=== PATIENT | female | born 1950 | race Caucasian/White ===

== ENCOUNTER 2019-02-18 09:54 | Emergency (ER) | payer OTHER ==
--- NOTE | 2019-02-18 11:09 | EDM.PDOC ---
ED HPI GENERAL MEDICAL PROBLEM - General Chief Complaint: Genitourinary Problem Stated Complaint: POSSIBLE UTI Time Seen by Provider: 02/18/19 10:40 Source of Information: Reports: Patient History Limitations: Reports: No Limitations - History of Present Illness INITIAL COMMENTS - FREE TEXT/NARRATIVE: 68-year-old without significant comorbidities presents with concerns of urinary discomfort. She is visiting the area from [place]. She reports that 2 days ago she began having dysuria and suprapubic tenderness. She has had no fevers. She has no flank pain. No hematuria.She otherwise feels well. Has a history of prior UTIs. 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: , Spontaneous Musculoskeletal History: Reports: Arthritis Endocrine/Metabolic History: Reports: Osteopenia Oncologic (Cancer) History: Reports: Malignant Melanoma Dermatologic History: Reports: Melanoma - Infectious Disease History Infectious Disease History: Reports: Chicken Pox, Measles, Mumps - Past Surgical History HEENT Surgical History: Reports: Adenoidectomy, Tonsillectomy GI Surgical History: Reports: Appendectomy, Cholecystectomy Social & Family History - Tobacco Use Smoking Status *Q: Never Smoker - Caffeine Use Caffeine Use: Reports: Coffee - Recreational Drug Use Recreational Drug Use: No ED ROS GENERAL - Review of Systems Review Of Systems: See Below Constitutional: Reports: No Symptoms HEENT: Reports: No Symptoms Respiratory: Reports: No Symptoms Cardiovascular: Reports: No Symptoms Endocrine: Reports: No Symptoms GI/Abdominal: Reports: No Symptoms : Reports: Dysuria, Frequency. Denies: Discharge, Hematuria Musculoskeletal: Reports: No Symptoms Skin: Reports: No Symptoms Neurological: Reports: No Symptoms Psychiatric: Reports: No Symptoms Hematologic/Lymphatic: Reports: No Symptoms Immunologic: Reports: No Symptoms ED EXAM, RENAL/ - Physical Exam Exam: See Below Exam Limited By: No Limitations General Appearance: Alert, WD/WN Nose: Normal Inspection Throat/Mouth: Normal Inspection Head: Atraumatic, Normocephalic Neck: Normal Inspection Respiratory/Chest: No Respiratory Distress, Lungs Clear Cardiovascular: Regular Rate, Rhythm GI/Abdominal: Normal Bowel Sounds, Soft, Tender (supra-pubic tenderness) Back Exam: Normal Inspection. No: CVA Tenderness (R), CVA Tenderness (L) Extremities: Normal Inspection Neurological: Alert, Oriented, CN II-XII Intact, Normal Gait Psychiatric: Normal Affect, Normal Mood Skin Exam: Warm, Dry Course - Vital Signs Last Recorded V/S: Last Vital Signs Temp 35.1 C L 02/18/19 10:21 Pulse 78 02/18/19 10:21 Resp 16 02/18/19 10:21 BP 124/69 02/18/19 10:21 Pulse Ox 97 02/18/19 10:21 - Orders/Labs/Meds Orders: Active Orders 24 hr Category Date Time Status CULTURE URINE [RM] Stat Lab 02/18/19 10:21 Received Labs: Laboratory Tests 02/18/19 Range/Units 10:21 Urine Color Yellow Urine Appearance Cloudy Urine pH 6.0 (4.5-8.0) Ur Specific [place] 1.005 L (1.008-1.030) Urine Protein Negative (NEGATIVE) mg/dL Urine Glucose (UA) Normal (NEGATIVE) mg/dL Urine Ketones Negative (NEGATIVE) mg/dL Urine Occult Blood Moderate (NEGATIVE) Urine Nitrite Positive H (NEGATIVE) Urine Bilirubin Negative (NEGATIVE) Urine Urobilinogen Normal (NORMAL) mg/dL Ur Leukocyte Esterase Moderate (NEGATIVE) Urine RBC 10-20 H (0-5) Urine WBC Semi-packed H (0-5) Ur Epithelial Cells Not seen Amorphous Sediment Not seen Urine Bacteria Many Urine Mucus Not seen - Re-Assessments/Exams Free Text/Narrative Re-Assessment/Exam: 68-year-old without significant medical problems presents with symptoms consistent with urinary tract infection. Consistent with cystitis, no evidence of ascending infection. Otherwise well with normal vital signs. Sulfa allergies and desire to obtain antibiotic from [facility] machine has led us to use cipro x3 days. She will return for worsening symptoms. Culture sent Discharged 02/18/19 11:07 Departure - Departure Time of Disposition: 11:09 Disposition: Home, Self-Care 01 Clinical Impression: UTI, Urinary tract infectious disease - Discharge Information Referrals: PCP,None [Primary Care Provider] - Additional Instructions: Please take the prescribed antibiotics Return to the ER for worsening symptoms as discussed. - My Orders Last 24 Hours: My Active Orders 02/18/19 10:21 CULTURE URINE [RM] Stat - Assessment/Plan Last 24 Hours: My Active Orders 02/18/19 10:21 CULTURE URINE [RM] Stat
== END 2019-02-18 11:08 | disposition home or self-care (01) ==
LOC: JP.ED 09:54
DX: N39.0 Urinary tract infection, site not specified (principal); I10 Essential (primary) hypertension; E78.00 Pure hypercholesterolemia, unspecified; Z79.899 Other long term (current) drug therapy; Z88.2 Allergy status to sulfonamides
CPT/HCPCS: 81001; 87086; 87088; 87186; 99283